=== PATIENT | male | born 2000 | race Caucasian/White ===

== ENCOUNTER 2018-03-31 16:23 | Emergency (ER) | payer OTHER ==
[2018-03-31 17:04] VITALS: BP 124/70
--- NOTE | 2018-03-31 18:00 | UC ---
UC General HPI - HPI Summary HPI Summary: Pt presents with sudden onset of bright red blood with each bowel movement that began 2 days ago. Pt reports that he has had two BM's in the last two days. Pt reports that with BM today had large blood clot today. Denies abdominal pain, fever, chills, nausea or vomiting. Pt denies hx IBS, crohns, ulcers or diverticulitis. - History of Current Complaint Chief Complaint: UCGI Stated Complaint: PERSONAL Time Seen by Provider: 03/31/18 17:47 Hx Obtained From: Patient Onset/Duration: Sudden Onset, Lasting Days, Still Present Timing: Intermittent Episodes Lasting: - with BM Onset Severity: Mild Current Severity: Mild Pain Intensity: 0 Associated Signs & Symptoms: Positive: Other - BRBPR with BM - Allergy/Home Medications Allergies/Adverse Reactions: Allergies Allergy/AdvReac Type Severity Reaction Status Date / Time No Known Allergies Allergy Verified 03/31/18 17:02 Home Medications: Home Medications NK [No Home Medications Reported] 03/31/18 [History Confirmed 03/31/18] PMH/Surg Hx/FS Hx/Imm Hx Previously Healthy: Yes - Surgical History Surgical History: None - Family History Known Family History: Positive: Cardiac Disease - Social History Occupation: Student - [employer] Lives: Dormitory/Roommates Alcohol Use: Occasionally Substance Use Type: None Smoking Status (MU): Never Smoked Tobacco Have You Smoked in the Last Year: No Review of Systems All Other Systems Reviewed And Are Negative: Yes Constitutional: Positive: Negative Skin: Positive: Negative Eyes: Positive: Negative ENT: Positive: Negative Respiratory: Positive: Negative Cardiovascular: Positive: Negative Gastrointestinal: Positive: Other - BRBPR with BM Genitourinary: Positive: Other - melena Motor: Positive: Negative Neurovascular: Positive: Negative Musculoskeletal: Positive: Negative Neurological: Positive: Negative Psychological: Positive: Negative Is Patient Immunocompromised?: No Physical Exam Triage Information Reviewed: Yes Appearance: Well-Appearing Vital Signs: Initial Vital Signs Temp 98.2 F 03/31/18 16:59 Pulse 71 03/31/18 16:59 Resp 16 03/31/18 16:59 BP 124/70 03/31/18 16:59 Pulse Ox 99 03/31/18 16:59 Vital Signs Reviewed: Yes Eye Exam: Normal ENT Exam: Normal Dental Exam: Normal Neck exam: Normal Respiratory Exam: Normal Cardiovascular Exam: Normal Abdominal Exam: Normal Abdomen Description: Positive: Nontender Bowel Sounds: Positive: Present Musculoskeletal Exam: Normal Neurological Exam: Normal Psychological Exam: Normal Skin Exam: Normal Course/Dx - Differential Dx - Multi-Symptom Differential Diagnoses: Other - melena Provider Diagnoses: BRBPR. blood in stools Discharge - Sign-Out/Discharge Documenting (check all that apply): Patient Departure All imaging exams completed and their final reports reviewed: No Studies - Discharge Plan Condition: Stable Disposition: HOME Patient Education Materials: Melena (ED) Referrals: Care [facility] [Outside] - If Needed No Primary Care Phys,NOPCP [Primary Care Provider] - Additional Instructions: PLEASE KEEP YOUR APPOINTMENT WITH YOUR NEW PCP. IF SYMPTOMS WORSEN PLEASE GO DIRECTLY TO THE CLOSEST EMERGENCY ROOM. - Billing Disposition and Condition Condition: STABLE Disposition: Home
== END 2018-03-31 18:24 | disposition home or self-care (01) ==
LOC: UCCORT 16:23
DX: K62.5 Hemorrhage of anus and rectum (principal); K92.1 Melena
CPT/HCPCS: 99201; G0463